=== PATIENT | female | born 1970 | race American Indian/Alaskan Native ===

== ENCOUNTER 2018-02-24 16:22 | Emergency (ER) | payer OTHER ==
[2018-02-24 16:36] VITALS: BP 148/100; PULSE 71; RESP 16; TEMP 98; O2SAT 97
--- NOTE | 2018-02-24 16:56 | C.PDOC ---
History Of Present Illness 47 yo female presents to the ED complaining of right wrist pain for the past few days. 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 Pain is over the radial side of wrist. No other complaints. She denies any numbness, weakness, or tingling. Time Seen by Provider: 02/24/18 16:50 Chief Complaint (Nursing): Upper Extremity Problem/Injury History Per: Patient History/Exam Limitations: no limitations Onset/Duration Of Symptoms: Days Current Symptoms Are (Timing): Still Present Past Medical History Reviewed: Historical Data, Nursing Documentation, Vital Signs Vital Signs: Last Vital Signs Temp 98 F 02/24/18 16:32 Pulse 71 02/24/18 16:32 Resp 16 02/24/18 16:32 BP 148/100 H 02/24/18 16:32 Pulse Ox 97 02/28/18 07:30 - Medical History PMH: Anxiety, Asthma, COPD, HTN, Migraine Surgical History: Cholecystectomy Family History: States: No Known Family Hx - Social History Hx Alcohol Use: Yes Hx Substance Use: No - Immunization History Hx Tetanus Toxoid Vaccination: No Hx Influenza Vaccination: No Hx Pneumococcal Vaccination: No Review Of Systems Constitutional: Negative for: Fever Musculoskeletal: Positive for: Hand Pain (right wrist) Skin: Negative for: Rash, Lesions Neurological: Negative for: Weakness, Numbness, Incoordination Physical Exam - Physical Exam Appears: Well, Non-toxic, No Acute Distress Skin: Warm, Dry, No Rash Head: Atraumatic, Normacephalic Eye(s): bilateral: Normal Inspection Neck: Normal ROM Chest: Symmetrical Respiratory: Other (No respiratory distress) Extremity: Normal ROM (but patient reports pain on ulnar deviation), Tenderness (over the radial aspect of right wrist), Capillary Refill (less than 2 sec), No Deformity, No Swelling Pulses: Left Radial: Normal, Right Radial: Normal Neurological/Psych: Oriented x3, Normal Speech ED Course And Treatment O2 Sat by Pulse Oximetry: 97 (RA) Pulse Ox Interpretation: Normal Medical Decision Making Medical Decision Making: Impression: Right wrist pain Plan: --X-ray of right hand --X-ray of right wrist --Toradol 30 mg IM --Reassess and dispo xr neg as read by me. ?dequvains tenosynovitis. no erythema, no fever. advise outpt fu. Disposition - Disposition Referrals: [facility] [Outside] [facility] [Outside] [facility] [Outside] Aneesh Phoenix MD [Staff Provider] - Disposition: HOME/ ROUTINE Disposition Time: 06:00 Condition: STABLE Additional Instructions: follow up with your doctor. return to er with worsening symptoms or concerns. Prescriptions: Naproxen [Naprosyn] 500 mg PO BID PRN #14 tab PRN Reason: Pain, Mild (1-3) Instructions: De Quervain's Tenosynovitis, Wrist Sprain (DC) Forms: [employer] ([place]) - Clinical Impression Clinical Impression: Wrist pain - Scribe Statement The provider has reviewed the documentation as recorded by the Scribe (Albertina Aleman) Provider Attestation: All medical record entries made by the Scribe were at my direction and personally dictated by me. I have reviewed the chart and agree that the record accurately reflects my personal performance of the history, physical exam, medical decision making, and the department course for this patient. I have also personally directed, reviewed, and agree with the discharge instructions and disposition.
--- NOTE | 2018-02-24 18:34 | RAD ---
Date of service: 02/24/18 Right wrist radiographs Right hand radiographs Comparison: None available Findings: No acute displaced fracture or dislocation identified. Soft tissues appear unremarkable. No evidence of radiopaque foreign body. Impression: No acute displaced fracture or dislocation identified. If symptoms persist or if there is continued clinical concern, x-ray follow-up in 7-10 days should be considered.
== END 2018-02-24 18:00 | disposition home or self-care (01) ==
LOC: C.ER 16:22
DX: M25.531 Pain in right wrist (principal); I10 Essential (primary) hypertension; J44.9 Chronic obstructive pulmonary disease, unspecified
CPT/HCPCS: 73110; 73130; 96372; 99284; J1885

== ENCOUNTER 2018-09-14 19:55 | Emergency (ER) | payer OTHER ==
[2018-09-14 20:25] VITALS: BP 154/98; PULSE 73; RESP 22; TEMP 98.1; O2SAT 99
--- NOTE | 2018-09-14 21:35 | C.PDOC ---
History Of Present Illness 48 y/o female presents to the ED complaining that she awoke with sudden onset of pain to left wrist. Associated with mild redness and swelling over the past 2 days. Patient reports similar episode several months ago, for which she was given NSAIDs with improvement. She denies any trauma. No numbness or weakness. Otherwise she denies any rash, fevers, recent travel, or recent illness. Time Seen by Provider: 09/14/18 20:44 Chief Complaint (Nursing): Upper Extremity Problem/Injury History Per: Patient History/Exam Limitations: no limitations Onset/Duration Of Symptoms: Hrs Current Symptoms Are (Timing): Still Present Quality: "Pain" Exacerbating Factor(s): Strenuous Use Of Affected Area Past Medical History Reviewed: Historical Data, Nursing Documentation, Vital Signs Vital Signs: Last Vital Signs Temp 98.1 F 09/14/18 20:21 Pulse 73 09/14/18 20:21 Resp 22 09/14/18 20:21 BP 154/98 H 09/14/18 20:21 Pulse Ox 99 09/14/18 20:21 - Medical History PMH: Anxiety, Asthma, COPD, HTN, Migraine Surgical History: Cholecystectomy Family History: States: Unknown Family Hx - Social History Hx Alcohol Use: Yes Hx Substance Use: No - Immunization History Hx Tetanus Toxoid Vaccination: No Hx Influenza Vaccination: No Hx Pneumococcal Vaccination: No Review Of Systems Except As Marked, All Systems Reviewed And Found Negative. Constitutional: Negative for: Fever, Chills Musculoskeletal: Positive for: Hand Pain (left wrist) Skin: Positive for: Other (redness to left wrist). Negative for: Rash Neurological: Negative for: Weakness, Numbness Physical Exam - Physical Exam Appears: Non-toxic, No Acute Distress Skin: Warm, Dry, No Rash Head: Atraumatic, Normacephalic Eye(s): bilateral: Normal Inspection Respiratory: No Accessory Muscle Use, Other (Speaking in complete sentences) Extremity: Normal ROM (of the left wrist and digits), Tenderness (mildly tender to left wrist), Capillary Refill (less than 2sec), No Deformity, Swelling (Mild erythema and swelling to the dorsolateral aspect of left wrist) Pulses: Left Radial: Normal, Right Radial: Normal Neurological/Psych: Oriented x3, Normal Motor, Normal Sensation Gait: Steady ED Course And Treatment O2 Sat by Pulse Oximetry: 99 (RA) Pulse Ox Interpretation: Normal Medical Decision Making Medical Decision Making: Impression: Gout Plan: - 650 mg PO Tylenol - 60 mg PO Prednisone Patient is stable for discharge home, given Rx for Tylenol and Prednisone to go home with. Disposition - Disposition Referrals: Ubaldo Moscoso MD [Medical Doctor] - Vern Marion MD [Medical Doctor] - Mark Atwood MD [Staff Provider] - Disposition: HOME/ ROUTINE Disposition Time: 21:39 Condition: GOOD Additional Instructions: Follow up with the medical doctor within 1-2 days. Return if worsened. Prescriptions: Acetaminophen [Tylenol] 325 mg PO Q6 PRN #30 tab PRN Reason: Pain, Mild (1-3) predniSONE [Prednisone] 20 mg PO BID #10 tab Instructions: Gout (DC) Forms: [employer] ([place]ian) - Clinical Impression Clinical Impression: Gout attack - PA / THEATRICAL RIGGER / Resident Statement MD/DO has reviewed & agrees with the documentation as recorded. - Scribe Statement The provider has reviewed the documentation as recorded by the Scribdouglas Aleman All medical record entries made by the Scribe were at my direction and personally dictated by me. I have reviewed the chart and agree that the record accurately reflects my personal performance of the history, physical exam, medical decision making, and the department course for this patient. I have also personally directed, reviewed, and agree with the discharge instructions and disposition.
== END 2018-09-14 22:00 | disposition home or self-care (01) ==
LOC: C.ER 19:55
DX: M10.9 Gout, unspecified (principal); I10 Essential (primary) hypertension; J44.9 Chronic obstructive pulmonary disease, unspecified